=== PATIENT | female | born 1960 | race Caucasian/White ===

== ENCOUNTER 2017-01-21 14:32 | Emergency (ER) | payer OTHER ==
[~2017-01-21] VITALS: Ht 152.4 cm; Wt 99.8 kg
[2017-01-21 14:35] VITALS: BP 136/89
[2017-01-21] MEDS ORDERED: ONDANSETRON 4 MG TAB.RAPDIS SL ONE (16:30)
[2017-01-21] MEDS ORDERED: HYDROCODONE/APAP 10/325MG 1 EA TABLET PO ONE (16:30)
[2017-01-21] MEDS ORDERED: ONDANSETRON 4 MG TAB.RAPDIS ONE (16:47)
[2017-01-21] MEDS ORDERED: HYDROCODONE/APAP 10/325MG 1 EA TABLET ONE (16:47)
== END 2017-01-21 18:12 | disposition home or self-care (01) ==
LOC: ER 14:34
DX: M54.6 Pain in thoracic spine (principal); E11.9 Type 2 diabetes mellitus without complications; I10 Essential (primary) hypertension; J45.909 Unspecified asthma, uncomplicated
CPT/HCPCS: 71010-TC; A4606; Q0162; Z7610

== ENCOUNTER 2018-08-09 12:29 | Emergency (ER) | payer OTHER ==
[~2018-08-09] VITALS: Ht 152.4 cm; Wt 99.8 kg
[2018-08-09 12:30] VITALS: BP 138/85
[2018-08-09] MEDS ORDERED: IPRATROPIUM NEB FS 0.5 MG/2.5 ML AMPUL.NEB NEB ONE (13:00)
[2018-08-09] MEDS ORDERED: predniSONE 20 MG TABLET PO ONE (13:00)
[2018-08-09] MEDS ORDERED: ALBUTEROL FS 2.5 MG/3 ML VIAL.NEB NEB ONE (13:00)
[2018-08-09] MEDS ORDERED: IPRATROPIUM NEB FS 0.5 MG/2.5 ML AMPUL.NEB ONE (13:18)
[2018-08-09] MEDS ORDERED: ALBUTEROL FS 2.5 MG/3 ML VIAL.NEB ONE (13:18)
[2018-08-09] MEDS ORDERED: predniSONE 20 MG TABLET ONE (13:23)
== END 2018-08-09 13:59 | disposition home or self-care (01) ==
LOC: ER 12:36
DX: J20.9 Acute bronchitis, unspecified (principal); E11.9 Type 2 diabetes mellitus without complications; I10 Essential (primary) hypertension; J45.909 Unspecified asthma, uncomplicated; Z98.890 Other specified postprocedural states
CPT/HCPCS: 71045; 94640; 99283; A4606; J7512

== ENCOUNTER 2019-07-07 16:42 | Emergency (ER) | payer OTHER ==
[~2019-07-07] VITALS: Ht 165.1 cm; Wt 101.6 kg
--- NOTE | 2019-07-07 16:55 | NUR ---
PT BIB [facility] C/O COUGH X 2 WEEKS, PT IS AAOX4, NOT IN RESPIRATORY DISTRESS, HOOKED TO MONITOR, KEPT RESTED AND COMFORTABLE, WILL CONTINUE TO MONITOR.
[2019-07-07] MEDS ORDERED: ALBUTEROL FS 2.5 MG/0.5 ML VIAL.NEB NEB ONE (17:00)
[2019-07-07] MEDS ORDERED: IPRATROPIUM NEB FS 0.5 MG/2.5 ML AMPUL.NEB NEB ONE (17:00)
[2019-07-07] MEDS ORDERED: HYDROCODONE BIT/HOMATROPINE 5 ML UDC PO ONE (17:00)
--- NOTE | 2019-07-07 17:01 | NUR ---
SEEN AND EXAMINED BY NILAM BARILLAS.
[2019-07-07] MEDS ORDERED: HYDROCODONE BIT/HOMATROPINE 5 ML UDC ONE (17:04)
--- NOTE | 2019-07-07 17:05 | NUR ---
ANALYSIS ANALYST AT BEDSIDE FOR XRAY.
[2019-07-07] MEDS ORDERED: IPRATROPIUM NEB FS 0.5 MG/2.5 ML AMPUL.NEB ONE (17:08)
[2019-07-07] MEDS ORDERED: ALBUTEROL FS 2.5 MG/0.5 ML VIAL.NEB ONE (17:08)
--- NOTE | 2019-07-07 17:12 | NUR ---
RT AT BEDSIDE FOR BREATHING TREATMENT.
[2019-07-07 18:00] VITALS: BP 133/77
--- NOTE | 2019-07-07 18:00 | NUR ---
Patient discharged to home in stable condition. Written and verbal after care instructions given. Patient verbalizes understanding of instruction.
== END 2019-07-07 18:01 | disposition home or self-care (01) ==
LOC: ER 16:42
DX: J20.9 Acute bronchitis, unspecified (principal); I10 Essential (primary) hypertension; E11.9 Type 2 diabetes mellitus without complications; M19.90 Unspecified osteoarthritis, unspecified site; Z98.890 Other specified postprocedural states
CPT/HCPCS: 71045-TC

== ENCOUNTER 2020-11-11 11:21 | Emergency (ER) | payer OTHER ==
[~2020-11-11] VITALS: Ht 162.6 cm; Wt 99.8 kg
--- NOTE | 2020-11-11 11:47 | NUR ---
The patient bib los for c/o back, and head pain s/p glf yesterday from the escalator, -loc. Rates 8/10 on a pain scale. Denies numbness/tingling in the extremities. Will continue to monitor the patient.
[2020-11-11] MEDS ORDERED: KETOROLAC TROMETHAMINE INJ 30 MG/ML VIAL IM ONE (12:30)
[2020-11-11] MEDS ORDERED: KETOROLAC TROMETHAMINE INJ 30 MG/ML VIAL ONE (12:31)
--- NOTE | 2020-11-11 12:36 | NUR ---
pt to radiology at for head ct scan via [facility].
[2020-11-11] MEDS ORDERED: IBUP-1957 PO (13:54)
[2020-11-11] MEDS ORDERED: METH-649 GT (13:54)
[2020-11-11 14:02] VITALS: BP 152/87
--- NOTE | 2020-11-11 14:02 | NUR ---
Patient discharged to home in stable condition. Written and verbal after care instructions given. Patient verbalizes understanding of instruction. The patient left ER with her son.
== END 2020-11-11 14:02 | disposition home or self-care (01) ==
LOC: ER 11:28
DX: S00.81XA Abrasion of other part of head, initial encounter (principal); M54.6 Pain in thoracic spine; I10 Essential (primary) hypertension; J45.909 Unspecified asthma, uncomplicated; E11.9 Type 2 diabetes mellitus without complications; M19.90 Unspecified osteoarthritis, unspecified site; Z98.890 Other specified postprocedural states; W18.39XA Other fall on same level, initial encounter; Y93.89 Activity, other specified; Y92.89 Other specified places as the place of occurrence of the external cause; Y99.8 Other external cause status
CPT/HCPCS: 70450; 96372; 99284; J1885